=== PATIENT | female | born 1980 | race Two or more races ===

== ENCOUNTER 2023-03-31 11:03 | Inpatient (IN) | payer OTHER ==
[~2023-03-31] VITALS: Ht 162.6 cm; Wt 53.5 kg
[2023-04-05] MEDS ORDERED: MEGESTROL ACETA40 MG (08:02)
[2023-04-05] MEDS ORDERED: LEVO-T125 MCG PO (08:04)
[2023-04-05] MEDS ORDERED: TOPROL XL25 M1 PO (08:04)
[2023-04-05] MEDS ORDERED: VALSARTAN80 MG PO (08:08)
[2023-04-05] MEDS ORDERED: DIOVAN160 M1 PO (08:09)
[2023-04-05 13:44] LABS: HEMATOCRIT 37.6 % (36.0-45.00); HEMOGLOBIN 12.1 g/dL (12.0-15.00); MEAN CELL VOLUME 78.7 fL (80.00-100.00); MEAN CORPUSCULAR HEMOGLOBIN 25.3 pg (27.00-32.0); MEAN CORPUSCULAR HGB CONC 32.1 g/dl (32.0-36.0); PLATELET COUNT 308 K/uL (150-450); RED BLOOD COUNT 4.77 M/uL (4.00-6.00); RED CELL DISTRIBUTION WIDTH 16.3 % (11.5-14.5)
[2023-04-07] MEDS ORDERED: IBUPROFEN800 MG PO (07:03)
[2023-04-07] MEDS ORDERED: GABAPENTIN300 MG PO (07:03)
[2023-04-07] MEDS ORDERED: POLY119PG PO (07:04)
[2023-04-07] MEDS ORDERED: SIMETHICONE125 M1 PO (07:04)
== END 2023-04-07 10:31 | disposition home or self-care (01) | DRG 743 ==
LOC: O/R 04-05 05:40 → OB/GYN 04-05 05:40
PROVIDERS: ADMIT Obstetrics & Gynecology; ATTEND Obstetrics & Gynecology
PROC: 0UT70ZZ Resection of Bilateral Fallopian Tubes, Open Approach (ICD-10-PCS; 2023-04-05)
PROC: 0UT90ZZ Resection of Uterus, Open Approach (ICD-10-PCS; principal; 2023-04-05 07:00)
DX: D25.1 Intramural leiomyoma of uterus (principal); D25.2 Subserosal leiomyoma of uterus; D25.0 Submucous leiomyoma of uterus; N84.1 Polyp of cervix uteri; Z20.822 Contact with and (suspected) exposure to COVID-19